=== PATIENT | female | born 1935 | race Caucasian/White ===

== ENCOUNTER → 2017-06-08 12:27 | Outpatient (CLI) | payer MEDICARE, OTHER ==
[2013-10-18 10:13] VITALS: BMI 24.2
[~2017-06-08 12:27] MED LIST: ASPIRIN325 MG PO; BIOTIN5 MG PO; CALCIUM CITRATE1 TAB PO; CO Q-10200 MG PO; FISH OIL 1,2001 CA1 PO; HYDROCHLOROTHIA25 MG PO; K-DUR20 MEQ PO; LIPITOR20 MG PO; MULTI-DAY VITAM1 TAB PO; NEXIUM20 MG PO; NORCO 5/325 TAB1 TA1 PO; NORVASC10 MG PO; OSTEO BI-FLEX1 EAC1 PO; PLAVIX75 MG PO; PRILOSEC20 MG PO; PRINIVIL20 MG PO; PROZAC20 MG PO; SENOKOT-S TABLE1 TAB PO
== END | disposition home or self-care (01) ==
LOC: D.CT 12:27
DX: I65.23 Occlusion and stenosis of bilateral carotid arteries (principal)

== ENCOUNTER → 2018-08-30 09:37 | Outpatient (CLI) | payer MEDICARE, OTHER ==
[2013-10-18 10:13] VITALS: BMI 24.2
== END | disposition home or self-care (01) ==
LOC: D.US 09:37
DX: I65.23 Occlusion and stenosis of bilateral carotid arteries (principal)

== ENCOUNTER → 2019-09-05 12:34 | Outpatient (CLI) | payer MEDICARE, OTHER ==
[2013-10-18 10:13] VITALS: BMI 24.2
== END | disposition home or self-care (01) ==
LOC: D.US 12:34
PROVIDERS: ATTEND Internal Medicine Cardiovascular Disease
DX: I65.23 Occlusion and stenosis of bilateral carotid arteries (principal)

== ENCOUNTER → 2019-09-09 12:36 | Outpatient (CLI) | payer MEDICARE, OTHER ==
[2013-10-18 10:13] VITALS: BMI 24.2
== END | disposition home or self-care (01) ==
LOC: D.CT 12:36
PROVIDERS: ATTEND Internal Medicine Cardiovascular Disease
DX: I65.29 Occlusion and stenosis of unspecified carotid artery (principal)

== ENCOUNTER → 2020-05-21 11:16 | Outpatient (CLI) | payer MEDICARE, OTHER ==
[2013-10-18 10:13] VITALS: BMI 24.2
== END | disposition home or self-care (01) ==
LOC: D.US 11:16
PROVIDERS: ATTEND Internal Medicine Cardiovascular Disease
DX: I65.23 Occlusion and stenosis of bilateral carotid arteries (principal)